=== PATIENT | male | born 1985 | race African-American/Black ===

== ENCOUNTER 2025-09-03 13:56 | Emergency (ER) | payer SELFPAY ==
[2025-09-03] MEDS ORDERED: HYDROcodone/Acetaminophen 5/325 mg Tablet ONE (14:25)
== END 2025-09-03 14:30 | disposition home or self-care (01) ==
LOC: NAV ERS 13:56
DX: K04.4 Acute apical periodontitis of pulpal origin (principal); F17.210 Nicotine dependence, cigarettes, uncomplicated
CPT/HCPCS: 99282